=== PATIENT | female | born 1975 | race Caucasian/White ===

== ENCOUNTER 2021-01-02 01:29 | Emergency (ER) | payer OTHER ==
[~2021-01-02] VITALS: Ht 160 cm; Wt 65.8 kg
[~2021-01-02 01:29] MED LIST: CELEXA; COLACE100 MG; FERROUS GLUCON325 M4; FOLIC ACID0.4 MG; IBUPROFEN 800800 M1; IBUPROFEN 800800 M1 BUCCAL; MACROBID 100 M100 M1 PO; MEDROLDOSEPACK PO; METAXALONE800 MG; NEXIUM; PHENERGAN; PRILOSEC40 MG; Prenatal; VALIUM5 MG; VICODIN 5-5001 EACH; WELLBUTRIN XL300 M1; ZOFRAN8 MG
[2021-01-02] MEDS ORDERED: SERTRALINE HCL100 MG PO (01:40)
[2021-01-02] MEDS ORDERED: PROTONIX 20 MG20 MG PO (01:41)
[2021-01-02] MEDS ORDERED: LIPITOR10 MG PO (01:41)
[2021-01-02] MEDS ORDERED: WELLBUTRIN 75 M75 M1 PO (01:42)
[2021-01-02] MEDS ORDERED: PEPCID40 MG PO (03:24)
[2021-01-02] MEDS ORDERED: PREDNISONE 20 M20 M1 PO (03:24)
[2021-01-02 03:35] VITALS: BP 112/61
== END 2021-01-02 03:35 | disposition home or self-care (01) ==
LOC: M.ERS 01:29
DX: T78.40XA Allergy, unspecified, initial encounter (principal); Z79.899 Other long term (current) drug therapy; X58.XXXA Exposure to other specified factors, initial encounter